=== PATIENT | male | born 1940 | race Caucasian/White ===

== ENCOUNTER 2019-01-01 09:22 | Inpatient (IN) ==
[2019-01-01] MEDS ORDERED: 0.9 % SODIUM CHLORIDE 1,000 ML IV ONE (09:26)
[2019-01-01] MEDS ORDERED: ONDANSETRON 4 MG/2 ML VIAL IV ONE ×2 (10:02→17:16)
--- NOTE | 2019-01-01 10:04 | Emergency Department Note ---
Abdominal Pain HPI - General Chief Complaint: Abdominal Pain Stated Complaint: Abd pain Time Seen by Provider: 01/01/19 09:53 Source: patient, family Mode of arrival: ambulatory Limitations: no limitations - History of Present Illness HPI Narrative: 78-year-old male patient presents to the emergency department with chief complaint abdominal pain. Patient told me he woke up around 05:30 this morning with severe, aggressive lower abdominal pain radiating down into his thighs and low back. He admits this feels a lot like when he had kidney stones in the past. He currently rates his pain 9/10. He denies any hematuria, dysuria, or frequency associated with this. His past history of some form of renal stone surgical procedure in the 1960s. He also denies A systemic fever, sweats, chills, shortness of breath, chest pain, palpitations, nausea, vomiting, diarrhea, or focal weakness. - Related Data Allergies Allergy/AdvReac Type Severity Reaction Status Date / Time Sulfa (Sulfonamide Allergy Mild Rash Verified 01/01/19 09:23 Antibiotics) Review of Systems All systems ED: reviewed and negative except as stated. Abdominal Pain PMH - Past Medical History Medical history: Reports: kidney stones Surgical history ED: Reports: other (renal stone removal) - Social History Smoking status: Never smoker Physical Exam Limitations: no limitations General appearance: alert, in distress (appears very incorrigible lying on the gurney.) Head: atraumatic, normocephalic Eye: Present: normal appearance, PERRL, EOMI. Absent: scleral icterus, conjunctival injection ENT: normal oropharynx, mucous membranes moist Neck: Present: trachea midline. Absent: lymphadenopathy, thyromegaly Respiratory: Present: normal lung sounds bilaterally. Absent: respiratory distress, wheezes, stridor, accessory muscle use, prolonged expiratory phase Cardiovascular: Present: regular rate, normal rhythm. Absent: systolic murmur, diastolic murmur Abdominal: Present: soft, tenderness (bilateral lower quadrant.), guarding (bilateral lower quadrants.), normal bowel sounds, scar (below the umbilicus midline.). Absent: distention, rebound, rigidity, organomegaly, mass Abdominal tenderness: Present: RLQ, LLQ, moderate. Absent: RUQ, LUQ, epigastrium Extremities: Absent: pedal edema, pretibial edema, calf tenderness Back: Present: CVA tenderness (R), CVA tenderness (L) Neurological: Present: alert, oriented X3 Psychiatric: Present: normal affect, normal mood Skin: Present: warm, dry Course Course Narrative: Patient was brought to the emergency department and a history of physical exam was performed. An IV was established and routine laboratory studies were drawn. Normal saline was started at thousand milliliter bolus. Patient was given Dilaudid 0.5 mg and Zofran 4 mg slow IV push. An abdominal CT scan has been ordered. Upon reevaluation patient admits his pain is essentially unchanged. Review of his laboratory studies showed subsegmental normal white blood cell count. H&H was within normal limits. CMP was essentially unremarkable with some mild hip per glycemia. GFR 90. Patient was given Toradol 30 mg IV push. Upon reevaluation he tells me that the pain is slightly decreased when he lays still. It does tend to sporadically increase taking his breath away. The CT scan results were reviewed by the radiologist to contacted us with a verbal read. At this time any stones were noted. The radiologist did mention the development of internal incarcerated hernias versus a bowel obstruction. With this in mind, I spoke to him my collaborative physician Mani is Dr. Espinal) mild patient's condition/disposition. He recommended we call the on-call surgeon about the patient's case. I spoke with Dr. Mohan. She is general surgeon) is about the patient and mentioned the CT scan results. The patient has remained hemodynamically stable throughout his entire time in the emergency department. He has received several IV doses of Dilaudid with only moderate control of his pain. At this time the patient is going to be admitted to the hospital and be evaluated further by Dr. Mohan upon his arrival at the facility. Vital Signs Temperature 97.0 F 01/01/19 09:24 Pulse Rate 58 L 01/01/19 09:24 Respiratory Rate 18 01/01/19 09:24 Blood Pressure 154/71 01/01/19 09:24 Pulse Oximetry (%) 97 01/01/19 09:24 Temperature 97.0 F 01/01/19 09:24 Pulse Rate 62 01/01/19 10:21 Respiratory Rate 18 01/01/19 09:24 Blood Pressure 150/73 01/01/19 10:21 Pulse Oximetry (%) 95 01/01/19 10:21 Abdominal Pain - Lab Data Lab results reviewed: Yes I reviewed the patient's lab results. Result diagrams: 01/01/19 09:39 01/01/19 09:39 Lab Results 01/01/19 01/01/19 Range/Units 09:39 09:39 WBC 11.1 H (4.5-11.0) K/mcL RBC 4.50 (4.50-5.90) M/mcL Hgb 14.6 (13.5-16.5) g/dL Hct 44.2 (41.0-55.0) % MCV 98.2 (80.0-100.0) fL MCH 32.3 (26.0-34.0) pg MCHC 32.9 (31.0-36.0) g/dL RDW 14.0 (11.5-14.5) % Plt Count 270 (140-440) K/mcL MPV 7.7 (7.4-10.4) fL Gran % 81.1 H (38.0-78.0) % Lymph % (Auto) 14.7 L (15.5-49.0) % [place] % (Auto) 3.6 (1.0-12.0) % Eos % (Auto) 0.2 (0.0-7.0) % Baso % (Auto) 0.4 (0.0-2.0) % Gran # 9.0 H (1.8-8.0) K/mcL Lymph # (Auto) 1.6 (1.5-4.8) K/mcL [place] # (Auto) 0.4 (0.1-0.9) K/mcL Eos # (Auto) 0 (0.0-0.7) K/mcL Baso # (Auto) 0 (0.0-0.3) K/mcL Sodium 138 (133-145) mmol/L Potassium 4.3 (3.3-5.1) mmol/L Chloride 101 (96-108) mmol/L Carbon Dioxide 24 (22-30) mmol/L Anion Gap 13.0 (8-16) BUN 14 (8-23) mg/dl Creatinine 0.7 (0.7-1.2) mg/dl GFR Calculation 90 Glucose 143 H (70-105) mg/dL Calcium 9.2 (8.6-10.4) mg/dl Total Bilirubin 0.5 (0.0-1.0) mg/dL AST 16 (0-37) U/l ALT 8 (0-40) U/l Alkaline Phosphatase 63 (39-117) U/L Total Protein 7.6 (5.9-8.4) gm/dL Albumin 4.5 (3.2-5.2) gm/dL Globulin 3.1 (2.2-3.7) gm/dL Albumin/Globulin Ratio 1.5 (1.0-2.3) - Radiology Data Radiology results reviewed: Yes I reviewed the patient's radiology results. Disposition Pt seen by HOOF TRIMMER/PA only: No ([facility]) Clinical Impression: Abdominal pain Qualifiers: Abdominal location: lower abdomen, unspecified Qualified Code(s): R10.30 - Lower abdominal pain, unspecified Disposition: Xfer As Outpt/Obs ([facility]) Condition: Good Instructions: Abdominal Pain (ED) Additional Instructions: Patient is going be admitted to the hospital under observation. He'll be evaluated by the general surgeon (Dr. Mohan) later today. Time of Disposition: 11:56
[2019-01-01] MEDS: HYDROmorphone 2 MG/ML VIAL IV PRN ×7 (10:08→23:54)
[2019-01-01 10:18] LABS: Basophils # (Auto) 0 K/mcL (0.0-0.3); Basophils % (Auto) 0.4 % (0.0-2.0); Eosinophils # (Auto) 0 K/mcL (0.0-0.7); Eosinophils % (Auto) 0.2 % (0.0-7.0); Granulocytes % (Auto) 81.1 % (38.0-78.0); Hematocrit 44.2 % (41.0-55.0); Hemoglobin 14.6 g/dL (13.5-16.5); Lymphocytes # (Auto) 1.6 K/mcL (1.5-4.8); Lymphocytes % (Auto) 14.7 % (15.5-49.0); Mean Cell Volume 98.2 fL (80.0-100.0); Mean Corpuscular HGB Conc 32.9 g/dL (31.0-36.0); Mean Platelet Volume 7.7 fL (7.4-10.4); Monocytes # (Auto) 0.4 K/mcL (0.1-0.9); Monocytes % (Auto) 3.6 % (1.0-12.0); Platelet Count 270 K/mcL (140-440); WBC 11.1 K/mcL (4.5-11.0)
[2019-01-01 10:26] LABS: ALT/SGPT 8 U/l (0-40); AST/SGOT 16 U/l (0-37); Albumin 4.5 gm/dL (3.2-5.2); Albumin/Globulin Ratio 1.5 (1.0-2.3); Alkaline Phosphatase 63 U/L (39-117); Bilirubin,Total 0.5 mg/dL (0.0-1.0); Blood Urea Nitrogen 14 mg/dl (8-23); Calcium 9.2 mg/dl (8.6-10.4); Carbon Dioxide 24 mmol/L (22-30); Chloride 101 mmol/L (96-108); Globulin 3.1 gm/dL (2.2-3.7); Glomerular Filtration Rate 90; Glucose 143 mg/dL (70-105); Potassium 4.3 mmol/L (3.3-5.1); Sodium 138 mmol/L (133-145)
[2019-01-01] MEDS ORDERED: KETOROLAC 30 MG/ML VIAL IV ONE (10:47)
[2019-01-01] MEDS ORDERED: ONDANSETRON 4 MG/2 ML VIAL IV PRN ×2 (11:30→17:58)
[2019-01-01] MEDS ORDERED: HYDROmorphone 2 MG/ML VIAL IV PRN (11:52)
--- NOTE | 2019-01-01 14:25 | Cat Scan Report ---
CLINICAL INFORMATION: New onset lower abdominal pain COMPARISON: None. TECHNIQUE: The abdomen was imaged without oral or IV contrast, scanning from the diaphragm to the symphysis pubis. Sagittal and coronal reformats were created. Radiation exposure was limited using dose reduction technology. FINDINGS: Lung bases are clear. The heart size is normal. There is a moderate amount calcified plaque in the left anterior descending coronary artery. Liver is normal in size. There is mild generalized fatty infiltration. The spleen is normal in size and homogeneous. There are no gallstones or dilatation of the bile ducts. There is no apparent mass or inflammation the pancreas. The adrenals are normal. No kidney stone or hydronephrosis are present. In the cortex anteriorly in the lower half of the right kidney there is a round 5 mm high attenuation structure. This probably a cyst with proteinaceous debris. The ureters are decompressed. The aorta is normal in caliber. There are few scattered plaques along the wall of the aorta and iliac arteries. Patient has a fat-containing umbilical hernia. There is there are several loops of jejunum in the left mid abdomen which are mildly dilated. There stranding of the mesenteric fat adjacent to the bowel. Transition points are seen. There is no apparent mass. The bowel measures up to 2.8 cm in size and contains mostly fluid. Proximal and distal to this the small intestine is normal in caliber. The colon appears normal without evidence of diverticulitis or obstruction or inflammatory bowel disease. The appendix is noninflamed. Small amount of ascites is present deep in the pelvis. There is no evidence of an abscess or adenopathy. No free intra-abdominal air is present. There is degenerative disc disease and arthritis throughout the lumbar spine and lower thoracic spine. IMPRESSION: Abnormal segments of dilated jejunum in the left mid abdomen. This could be due to an internal hernia or adhesions resulting in low-grade small bowel obstruction. No evidence of kidney stone or urinary tract obstruction Fatty infiltration of liver Dr. Espinal was called with the results Interpreted and Authenticated by: Alvino Rosales 01/01/19
--- NOTE | 2019-01-01 14:41 | General Surg History&Physical ---
History of Present Illness Patient information: Note initiated : 01/01/19 at 2:39 pm Service Date, if different from initiated Date: [] Patient: Alannah Valdez a 78 y/o M admitted on 01/01/19 for Abd pain. Chief Complaint: [] HPI: Mr. Valdez is a 78 year old M who was admitted with crampy abdominal pain and e vidence of internal hernia with bowel obstruction. The patient states that he was awakened about 5:30 this morning with crampy abdominal pain. The pain increased in severity and he had nausea but no vomiting. He was seen in the emergency room for evaluation. His last flatus was 1-1/2 days ago as was his last bowel movement. He has not had similar pain in the past. CT of the abdomen reveals an area of twisted bowel with twisting of the mesentery in the left lateral abdomen, compatible with suspected internal hernia with obstruction. He has gas distally in the colon and the bowel distal to the area of obstruction is decompressed. Patient has a history of laparotomy for kidney stones in the remote past. Review of Systems - Musculoskeletal back pain, myalgias Past History Past medical history: Hypothyroidism. History of kidney stones Past surgical history: Exploratory laparotomy for kidney stones. Bilateral rotator cuff repair Past family history: Mother age 80 due to complications of dementia. Father age 84 due to complications of colon cancer Past social history: No smokers or tobacco use. Occasional alcohol use. No history of drug use. Retired Medications and Allergies Home Medications Medication Instructions Recorded Confirmed Type Cyanocobalamin (Vitamin B-12) 2,500 mcg PO DAILY 01/01/19 01/01/19 History [Vitamin B12] Levothyroxine Sodium [Synthroid] 112 mcg PO DAILY 01/01/19 01/01/19 History Vit A,C & E/Lutein/Minerals 1 tab PO DAILY 01/01/19 01/01/19 History [Ocuvite] Allergies Allergy/AdvReac Type Severity Reaction Status Date / Time Sulfa (Sulfonamide Allergy Mild Rash Verified 01/01/19 09:23 Antibiotics) Exam Temp Pulse Resp BP Pulse Ox 98.2 F 74 16 159/81 97 01/01/19 12:08 01/01/19 12:08 01/01/19 12:08 01/01/19 12:08 06/01/19 12:08 - General physical appearance well developed, well nourished, no distress - Eyes PERRL, normal ocular movement - ENT normal pinna, normal nares, normal mucosa, no congestion, decreased hearing, poor alf - Head Head exam IM: Present: atraumatic, normocephalic - Neck no masses, no bruits, trachea midline, no lymphadenopathy, no venous distension - Cardiovascular Cardiovascular exam IM: Present: normal rate and rhythm - Respiratory normal expansion, normal respiratory effort, clear to percussion, clear to auscultation - Abdomen Abdomen: Present: soft, tender (tender abdomen especially in the left lateral abdomen and flank with guarding and rebound), bowel sounds (hyperactive bowel sounds) Hernia: Present: none - Genitourinary Present: normal penis with no external lesions - Integumentary Present: no rash, no growths, no abnormal pigmentation - Neurologic Present: normal coordination, normal sensation - Musculoskeletal Present: normal gait, normal posture - Psychiatric Present: oriented to time, oriented to person, oriented to place, speech is normal, memory intact Assessment and Plan (1) Small bowel obstruction due to adhesions IV hydration. Zosyn 3.375 g IV every 6 hours IV analgesics and antiemetics. Scheduled for exploratory laparotomy later today Status: Acute (2) Hypothyroidism (acquired) Status: Acute (3) History of kidney stones Status: Acute
[2019-01-01] MEDS: PIPERACILLIN SODIUM/TAZOBACTAM 3.375 GM in DEXTROSE 5% IN WATER 50 ML IV SCH ×3 (14:51→21:28)
--- NOTE | 2019-01-01 14:56 | XRay Report ---
HISTORY: Preop for bowel obstruction FINDINGS: The lungs are clear and well expanded. There is no pleural effusion, pulmonary vascular congestion or free intra-abdominal air. The heart size mediastinum and della are normal. There are two metal anchors in the right humeral head. IMPRESSION: Normal chest Interpreted and Authenticated by: Alvino Rosales 01/01/19
--- NOTE | 2019-01-01 16:17 | Emergency Department Note ---
ED Note Addendum Note Addendum: I reviewed this case of Hubert Roberson PA-C. I agree with his evaluation management documentation. In particular I discussed CT scan read out with Dr. Alvino Rosales the radiologist and then we discussed management of this case and the decision to admit with Mr. Roberson
[2019-01-01] MEDS ORDERED: PANTOPRAZOLE 40 MG VIAL IV SCH (17:00)
[2019-01-01] MEDS ORDERED: fentaNYL 250 MCG/5 ML VIAL IV ONE (17:16)
[2019-01-01] MEDS ORDERED: SUGAMMADEX SODIUM 200 MG/2 ML VIAL IV ONE (17:16)
[2019-01-01] MEDS ORDERED: MIDAZOLAM 5 MG/5 ML VIAL IV ONE (17:16)
[2019-01-01] MEDS ORDERED: DEXAMETHASONE 10 MG/ML VIAL IV ONE (17:16)
[2019-01-01] MEDS ORDERED: ROCURONIUM 10 MG/ML ML IV ONE (17:16)
[2019-01-01] MEDS ORDERED: PROPOFOL 200 MG/20 ML VIAL IV ONE (17:16)
[2019-01-01] MEDS ORDERED: LIDOCAINE HCL/PF 100 MG/5 ML SYRINGE IV ONE (17:16)
[2019-01-01 17:33] LABS: Appearance,Urine HAZY; Bacteria,Urine 0 /hpf (0); Bilirubin,Urine NEG (NEG); Color,Urine YELLOW; Culture Indicated,Urine NO; Glucose,Urine (UA) NEGATIVE (NEG); Ketones,Urine 20 mg/dL (NEG); Leukocyte Esterase,Urine 25 /uL (NEG); Mucus,Urine FEW /hpf (0); Nitrate,Urine NEG (NEG); Protein,Urine NEG (NEG); Specific Gravity,Urine 1.028 (1.000-1.035); Urine Amorphous Crystals FEW /hpf (0); Urine Blood NEG mg/dL (<0.03); Urine RBC < 1 /hpf (0-1); Urine Squamous Epithelial Cell < 1 /hpf (0-4); Urine WBC 8 /hpf (0-4); Urobilinogen,Urine NEG (NEG)
[2019-01-01] MEDS ORDERED: BENZOCAINE/MENTHOL 1 LOZENGE PO PRN (17:58)
[2019-01-01] MEDS ORDERED: LACTATED RINGERS 250 ML IV PRN (17:58)
[2019-01-01] MEDS ORDERED: diphenhydrAMINE 50 MG/ML VIAL IV PRN (17:58)
[2019-01-01] MEDS ORDERED: ACETAMINOPHEN 1,000 MG/100 ML BOTTLE IV ONE (17:58)
[2019-01-01] MEDS ORDERED: NALOXONE HCL 0.4 MG/ML VIAL IV PRN (17:58)
[2019-01-01] MEDS ORDERED: fentaNYL 100 MCG/2 ML VIAL IV PRN (17:58)
[2019-01-01] MEDS ORDERED: IPRATROPIUM/ALBUTEROL 3 ML AMPUL.NEB NEB PRN (17:58)
[2019-01-01] MEDS ORDERED: PROMETHAZINE 25 MG/ML VIAL IV PRN (17:58)
[2019-01-01] MEDS ORDERED: MEPERIDINE 25 MG/ML SYRINGE IV PRN (17:58)
[2019-01-01] MEDS ORDERED: LACTATED RINGERS 1,000 ML IV SCH (18:00)
[2019-01-01] MEDS ORDERED: MEPERIDINE 50 MG/ML INJECTION ONE (18:23)
--- NOTE | 2019-01-01 18:25 | Brief Operative Note ---
Date of procedure: 01/01/19 Pre-op diagnosis: small bowel obstruction Post-op diagnosis: other (small bowel obstruction with ischemic jejunum) Procedure: exploratory laparotomy with adhesiolysis Grafts/Implants: No Anesthesia: GETA Findings: tight adhesion around 20cm loop of jejunum with severe dark ischemic hemorrhagic changes in mesentery and bowel loops; the bowel regained perfusion with excellent peristalsis after 15 minutes; large volume of turbid fluid in pelvis Complications: none Surgeon: Josefa Mohan Estimated blood loss (cc): 10 Specimens Removed/Pathology: none sent Condition: stable Disposition: PACU
[2019-01-01] MEDS: FLUMAZENIL 0.1 MG/ML ML IV PRN ×2 (18:51→18:57)
[2019-01-01] MEDS ORDERED: FLUMAZENIL 0.1 MG/ML ML IV ONE (18:54)
[2019-01-01] MEDS ORDERED: ACETAMINOPHEN 1,000 MG in PREMIX 1 BAG IV SCH (19:19)
[2019-01-01] MEDS: 0.9 % SODIUM CHLORIDE 1,000 ML IV SCH ×2 (19:27→21:30)
[2019-01-01] MEDS: ONDANSETRON 4 MG/2 ML VIAL IV PRN (21:49)
[2019-01-01] MEDS: METOCLOPRAMIDE 10 MG/2 ML VIAL IV SCH (23:48)
[2019-01-02] MEDS: PIPERACILLIN SODIUM/TAZOBACTAM 3.375 GM in DEXTROSE 5% IN WATER 50 ML IV SCH ×5 (00:55→23:51)
[2019-01-02] MEDS: ACETAMINOPHEN 1,000 MG/100 ML BOTTLE IV SCH ×3 (01:24→12:39)
[2019-01-02] MEDS: 0.9 % SODIUM CHLORIDE 1,000 ML IV SCH ×3 (03:02→19:13)
[2019-01-02] MEDS: ONDANSETRON 4 MG/2 ML VIAL IV PRN ×2 (04:22→19:33)
[2019-01-02] MEDS: HYDROmorphone 2 MG/ML VIAL IV PRN ×2 (04:22→19:33)
[2019-01-02 05:40] LABS: Basophils # (Auto) 0 K/mcL (0.0-0.3); Basophils % (Auto) 0.1 % (0.0-2.0); Eosinophils # (Auto) 0 K/mcL (0.0-0.7); Eosinophils % (Auto) 0 % (0.0-7.0); Granulocytes % (Auto) 89.8 % (38.0-78.0); Hematocrit 38.3 % (41.0-55.0); Hemoglobin 12.8 g/dL (13.5-16.5); Lymphocytes # (Auto) 0.9 K/mcL (1.5-4.8); Mean Cell Volume 97.9 fL (80.0-100.0); Mean Corpuscular HGB Conc 33.5 g/dL (31.0-36.0); Mean Platelet Volume 7.6 fL (7.4-10.4); Monocytes # (Auto) 0.1 K/mcL (0.1-0.9); Monocytes % (Auto) 1.1 % (1.0-12.0); Platelet Count 222 K/mcL (140-440); RBC 3.91 M/mcL (4.50-5.90); Red Cell Distribution Width 13.8 % (11.5-14.5); WBC 9.7 K/mcL (4.5-11.0)
[2019-01-02] MEDS: METOCLOPRAMIDE 10 MG/2 ML VIAL IV SCH ×4 (05:43→23:51)
[2019-01-02 05:46] LABS: ALT/SGPT 6 U/l (0-40); AST/SGOT 14 U/l (0-37); Albumin 3.4 gm/dL (3.2-5.2); Albumin/Globulin Ratio 1.4 (1.0-2.3); Alkaline Phosphatase 47 U/L (39-117); Bilirubin,Direct < 0.2 mg/dL (0.0-0.3); Bilirubin,Total 0.6 mg/dL (0.0-1.0); Blood Urea Nitrogen 14 mg/dl (8-23); Calcium 8.1 mg/dl (8.6-10.4); Carbon Dioxide 21 mmol/L (22-30); Chloride 106 mmol/L (96-108); Gamma Glutamyl Transpeptidase 32 U/L (8-61); Globulin 2.5 gm/dL (2.2-3.7); Glomerular Filtration Rate 90; Glucose 136 mg/dL (70-105); Lactate Dehydrogenase 135 U/L (94-250); Magnesium 1.8 mg/dL (1.6-2.5); Phosphorous 2.6 mg/dL (2.7-4.5); Potassium 4.4 mmol/L (3.3-5.1); Sodium 139 mmol/L (133-145); Triglycerides 40 mg/dl (<150); Uric Acid 3.5 mg/dL (2.5-8.0)
[2019-01-02] MEDS ORDERED: PANTOPRAZOLE 40 MG VIAL IV SCH (07:30)
[2019-01-02] MEDS: PANTOPRAZOLE 40 MG VIAL IV SCH ×2 (07:58→17:25)
--- NOTE | 2019-01-02 13:34 | General Surgery Progress Note ---
Subjective Patient reports: feels better, pain is less, no flatus, no bowel movement Narrative: Note initiated : 01/02/19 at 1:32 pm Service Date, if different from initiated Date: [] Patient: Alannah Valdez 78 y/o M admitted on 01/01/19 for Abd pain. Chief Complaint: [patient is doing well. He he had an uneventful evening. His incisional pain is controlled. He denies nausea. He has not had flatus or b owel movement. White blood count 9.7, hemoglobin 12.8, hematocrit 38.3, lactic acid 2, phosphorus 2.6.] Objective Temp Pulse Resp BP Pulse Ox 97.9 F 87 20 133/75 96 01/02/19 11:41 01/02/19 04:00 01/02/19 11:41 01/02/19 11:41 01/02/19 11:41 - Additional Data Intake & Output - Last 24 hours: Intake & Output 12/31/18 01/01/19 01/02/19 01/03/19 05:59 05:59 05:59 05:59 Intake Total 4150 1150 Output Total 1200 Balance 2950 1150 Weight 152 lb - General physical appearance well developed, well nourished, no distress - Eyes PERRL, normal ocular movement - ENT normal pinna, normal nares, normal mucosa, no hearing loss, no congestion - Neck no masses, no bruits, trachea midline, no lymphadenopathy, no venous distension - Respiratory normal expansion, normal respiratory effort, clear to auscultation - Cardiovascular Cardiovascular exam: Present: normal rate and rhythm, RRR, +S1, +S2. Absent: JVD, tachycardia - Abdomen tender (mild incisional tenderness; mild central distention; hypoactive bowel sounds; moderate amount of bloody drainage from incision with early ecchymosis) - Integumentary no rash, no growths, no abnormal pigmentation - Neurologic normal coordination, normal sensation - Musculoskeletal normal gait, normal posture - Psychiatric oriented to time, oriented to person, oriented to place, speech is normal, memory intact - Labs 01/02/19 04:10 01/02/19 04:10 Diabetes panel 01/02/19 Range/Units 04:10 Sodium 139 (133-145) mmol/L Potassium 4.4 (3.3-5.1) mmol/L Chloride 106 (96-108) mmol/L Carbon Dioxide 21 L (22-30) mmol/L BUN 14 (8-23) mg/dl Creatinine 0.7 (0.7-1.2) mg/dl Glucose 136 H (70-105) mg/dL Calcium 8.1 L (8.6-10.4) mg/dl AST 14 (0-37) U/l ALT 6 (0-40) U/l Alkaline Phosphatase 47 (39-117) U/L Total Protein 5.9 (5.9-8.4) gm/dL Albumin 3.4 (3.2-5.2) gm/dL Triglycerides 40 (<150) mg/dl Calcium panel 01/02/19 Range/Units 04:10 Calcium 8.1 L (8.6-10.4) mg/dl Phosphorus 2.6 L (2.7-4.5) mg/dL Albumin 3.4 (3.2-5.2) gm/dL Pituitary panel 01/02/19 Range/Units 04:10 Sodium 139 (133-145) mmol/L Potassium 4.4 (3.3-5.1) mmol/L Chloride 106 (96-108) mmol/L Carbon Dioxide 21 L (22-30) mmol/L BUN 14 (8-23) mg/dl Creatinine 0.7 (0.7-1.2) mg/dl Glucose 136 H (70-105) mg/dL Calcium 8.1 L (8.6-10.4) mg/dl Adrenal panel 01/02/19 Range/Units 04:10 Sodium 139 (133-145) mmol/L Potassium 4.4 (3.3-5.1) mmol/L Chloride 106 (96-108) mmol/L Carbon Dioxide 21 L (22-30) mmol/L BUN 14 (8-23) mg/dl Creatinine 0.7 (0.7-1.2) mg/dl Glucose 136 H (70-105) mg/dL Calcium 8.1 L (8.6-10.4) mg/dl Total Bilirubin 0.6 (0.0-1.0) mg/dL AST 14 (0-37) U/l ALT 6 (0-40) U/l Alkaline Phosphatase 47 (39-117) U/L Total Protein 5.9 (5.9-8.4) gm/dL Albumin 3.4 (3.2-5.2) gm/dL Assessment and Plan (1) Small bowel obstruction due to adhesions Status: Resolved Assessment and plan: Continue nasogastric suction. Check abdominal x-rays in the morning Current Visit: Yes (2) Hypothyroidism (acquired) Status: Acute Current Visit: Yes (3) History of kidney stones Status: Acute Current Visit: Yes - Time Spent With Patient Total time spent is greater than 50% in coordination of care (as documented) at patient's floor/unit and/or counseling patient:
[2019-01-03] MEDS: 0.9 % SODIUM CHLORIDE 1,000 ML IV SCH ×5 (00:50→18:45)
[2019-01-03 05:01] LABS: Basophils # (Auto) 0 K/mcL (0.0-0.3); Basophils % (Auto) 0.2 % (0.0-2.0); Eosinophils # (Auto) 0 K/mcL (0.0-0.7); Eosinophils % (Auto) 0 % (0.0-7.0); Granulocytes % (Auto) 77.8 % (38.0-78.0); Hematocrit 35.9 % (41.0-55.0); Lymphocytes # (Auto) 1.9 K/mcL (1.5-4.8); Lymphocytes % (Auto) 15.2 % (15.5-49.0); Mean Cell Volume 98.4 fL (80.0-100.0); Mean Corpuscular HGB Conc 33.4 g/dL (31.0-36.0); Mean Platelet Volume 7.3 fL (7.4-10.4); Monocytes # (Auto) 0.9 K/mcL (0.1-0.9); Monocytes % (Auto) 6.8 % (1.0-12.0); Platelet Count 185 K/mcL (140-440); RBC 3.65 M/mcL (4.50-5.90); Red Cell Distribution Width 13.5 % (11.5-14.5); WBC 12.6 K/mcL (4.5-11.0)
[2019-01-03] MEDS: PIPERACILLIN SODIUM/TAZOBACTAM 3.375 GM in DEXTROSE 5% IN WATER 50 ML IV SCH ×4 (05:03→23:57)
[2019-01-03] MEDS: METOCLOPRAMIDE 10 MG/2 ML VIAL IV SCH ×4 (05:03→23:56)
[2019-01-03 05:40] LABS: ALT/SGPT 8 U/l (0-40); AST/SGOT 17 U/l (0-37); Albumin 3.4 gm/dL (3.2-5.2); Albumin/Globulin Ratio 1.3 (1.0-2.3); Alkaline Phosphatase 40 U/L (39-117); Bilirubin,Direct < 0.2 mg/dL (0.0-0.3); Bilirubin,Total 0.8 mg/dL (0.0-1.0); Blood Urea Nitrogen 16 mg/dl (8-23); Calcium 8.2 mg/dl (8.6-10.4); Carbon Dioxide 23 mmol/L (22-30); Chloride 108 mmol/L (96-108); Gamma Glutamyl Transpeptidase 28 U/L (8-61); Globulin 2.6 gm/dL (2.2-3.7); Glomerular Filtration Rate 86; Glucose 91 mg/dL (70-105); Lactate Dehydrogenase 156 U/L (94-250); Magnesium 2.1 mg/dL (1.6-2.5); Phosphorous 1.8 mg/dL (2.7-4.5); Potassium 4.1 mmol/L (3.3-5.1); Sodium 140 mmol/L (133-145); Triglycerides 114 mg/dl (<150); Uric Acid 2.4 mg/dL (2.5-8.0)
[2019-01-03] MEDS: PANTOPRAZOLE 40 MG VIAL IV SCH ×2 (06:51→17:30)
--- NOTE | 2019-01-03 08:02 | XRay Report ---
CLINICAL INFORMATION: follow-up of postoperative ileus COMPARISON: Preoperative abdomen and pelvic CT 01/01/2019 FINDINGS: Stool gas pattern is nonspecific: there are few loops of moderately dilated small bowel in the right mid abdomen which contain air-fluid levels. The remainder of the small and large bowel appear grossly normal. Small amount of free air under the right diaphragm is seen as expected in the postoperative period IMPRESSION: Probable atypical ileus. Consider: Water-soluble small bowel follow-through to ensure the absence of small bowel obstruction Interpreted and Authenticated by: Calvin Branch 01/03/19
--- NOTE | 2019-01-03 08:12 | Operative Note ---
DATE OF OPERATION: 01/01/2019 PREOPERATIVE DIAGNOSIS: Small bowel obstruction. POSTOPERATIVE DIAGNOSIS: Small bowel obstruction due to adhesions with ischemic jejunum. PROCEDURE: Exploratory laparotomy with adhesiolysis. SURGEON: Josefa Mohan M.D. FINDINGS: Tight adhesive band around about 20 cm of jejunum with severe dark ischemic hemorrhagic changes in the mesentery and bowel loops. The bowel regained perfusion with excellent peristalsis after 15 minutes of observation. There was a large volume of turbid fluid in the pelvis. DESCRIPTION OF PROCEDURE: Under general anesthesia, the patient's abdomen was prepped and draped in a sterile field. A midline incision was made. Upon entering the abdomen, there was some turbid fluid. Inspection revealed a loop of thickened bowel in the left lateral abdomen. These were pulled into the operating field. There was a band around the mesentery that was actually lysed with finger fractionation. This released the band, which was around the bowel lumen and the mesentery. There was severe venous congestion with dark ischemic hemorrhagic changes in the mesentery and the wall of the bowel. The bowel was allowed to perfuse for about 12 to 15 minutes. The bowel regained its peristaltic activity. The ischemic looking changes in the mesentery began to correct except for some edema. The pelvis was inspected and a large volume of turbid fluid was suctioned. The peritoneal cavity was irrigated. Nasogastric tube was positioned in the stomach. The rest of the bowel was uninvolved. The bowel was returned into the peritoneal cavity. The sponge, needle, instrument and blade counts were correct. The fascia was closed with running #1 Prolene. Subcutaneous fat was closed with running 2-0 Monocryl. Skin was closed with roger. The patient tolerated the procedure well. He was awakened and transferred to a bed and taken to the postanesthetic care unit in a stable, satisfactory condition. LCS:mónica Job ID: [id number] Doc ID: [id number] Josefa Mohan M.D.
--- NOTE | 2019-01-03 13:11 | General Surgery Progress Note ---
Subjective Patient reports: feels better, pain is less, flatus, no bowel movement, afebrile Narrative: Note initiated : 01/03/19 at 1:08 pm Service Date, if different from initiated Date: [] Patient: Alannah Valdez 78 y/o M admitted on 01/01/19 for Abd pain. Chief Complaint: [patient states that he feels better. He had multiple episodes of flatus. He denies nausea. His pain is well controlled. White blood count 12.6, hemoglobin 12, phosphorus 1.8, potassium 4.1.] Objective Temp Pulse Resp BP Pulse Ox 99.8 F H 70 18 142/73 94 01/03/19 11:55 01/03/19 11:55 01/03/19 11:55 01/03/19 11:55 01/03/19 11:55 - Additional Data Intake & Output - Last 24 hours: Intake & Output 01/01/19 01/02/19 01/03/19 01/04/19 05:59 05:59 05:59 05:59 Intake Total 4150 3720 1050 Output Total 1200 3725 1050 Balance 2950 -5 0 Weight 152 lb 156 lb - General physical appearance well developed, well nourished, no distress, moderate pain - Eyes PERRL, normal ocular movement - ENT normal pinna, normal nares, normal mucosa, no hearing loss, no congestion - Neck no masses, no bruits, trachea midline, no lymphadenopathy, no venous distension - Respiratory normal expansion, normal respiratory effort, clear to auscultation - Cardiovascular Cardiovascular exam: Present: normal rate and rhythm, RRR, +S1, +S2. Absent: JVD, tachycardia - Abdomen tender (tender midline incision; mild distention; good active bowel sounds), bowel sounds (present), surgical scars (none), masses (none) - Integumentary no rash, no growths, no abnormal pigmentation - Neurologic normal coordination, normal sensation - Musculoskeletal normal gait, normal posture - Psychiatric oriented to time, oriented to person, oriented to place, speech is normal, memory intact - Labs 01/03/19 04:00 01/03/19 04:00 Diabetes panel 01/03/19 Range/Units 04:00 Sodium 140 (133-145) mmol/L Potassium 4.1 (3.3-5.1) mmol/L Chloride 108 (96-108) mmol/L Carbon Dioxide 23 (22-30) mmol/L BUN 16 (8-23) mg/dl Creatinine 0.8 (0.7-1.2) mg/dl Glucose 91 (70-105) mg/dL Calcium 8.2 L (8.6-10.4) mg/dl AST 17 (0-37) U/l ALT 8 (0-40) U/l Alkaline Phosphatase 40 (39-117) U/L Total Protein 6.0 (5.9-8.4) gm/dL Albumin 3.4 (3.2-5.2) gm/dL Triglycerides 114 (<150) mg/dl Calcium panel 01/03/19 Range/Units 04:00 Calcium 8.2 L (8.6-10.4) mg/dl Phosphorus 1.8 L (2.7-4.5) mg/dL Albumin 3.4 (3.2-5.2) gm/dL Pituitary panel 01/03/19 Range/Units 04:00 Sodium 140 (133-145) mmol/L Potassium 4.1 (3.3-5.1) mmol/L Chloride 108 (96-108) mmol/L Carbon Dioxide 23 (22-30) mmol/L BUN 16 (8-23) mg/dl Creatinine 0.8 (0.7-1.2) mg/dl Glucose 91 (70-105) mg/dL Calcium 8.2 L (8.6-10.4) mg/dl Adrenal panel 01/03/19 Range/Units 04:00 Sodium 140 (133-145) mmol/L Potassium 4.1 (3.3-5.1) mmol/L Chloride 108 (96-108) mmol/L Carbon Dioxide 23 (22-30) mmol/L BUN 16 (8-23) mg/dl Creatinine 0.8 (0.7-1.2) mg/dl Glucose 91 (70-105) mg/dL Calcium 8.2 L (8.6-10.4) mg/dl Total Bilirubin 0.8 (0.0-1.0) mg/dL AST 17 (0-37) U/l ALT 8 (0-40) U/l Alkaline Phosphatase 40 (39-117) U/L Total Protein 6.0 (5.9-8.4) gm/dL Albumin 3.4 (3.2-5.2) gm/dL Assessment and Plan (1) Small bowel obstruction due to adhesions Status: Resolved Assessment and plan: Check abdominal x-rays in the morning Clear liquid diet. Replace phosphorus Current Visit: Yes (2) Hypothyroidism (acquired) Status: Acute Current Visit: Yes (3) History of kidney stones Status: Acute Current Visit: Yes - Time Spent With Patient Total time spent is greater than 50% in coordination of care (as documented) at patient's floor/unit and/or counseling patient:
[2019-01-03] MEDS: NEUTRA PHOS 1 PACKET PO SCH (20:49)
[2019-01-04] MEDS: 0.9 % SODIUM CHLORIDE 1,000 ML IV SCH ×2 (02:59→14:39)
[2019-01-04 05:28] LABS: Basophils # (Auto) 0 K/mcL (0.0-0.3); Basophils % (Auto) 0.3 % (0.0-2.0); Eosinophils # (Auto) 0.1 K/mcL (0.0-0.7); Eosinophils % (Auto) 0.8 % (0.0-7.0); Granulocytes % (Auto) 72.5 % (38.0-78.0); Hematocrit 35.4 % (41.0-55.0); Lymphocytes # (Auto) 1.5 K/mcL (1.5-4.8); Lymphocytes % (Auto) 18.2 % (15.5-49.0); Mean Cell Volume 96.7 fL (80.0-100.0); Mean Corpuscular HGB Conc 33.9 g/dL (31.0-36.0); Mean Platelet Volume 7.5 fL (7.4-10.4); Monocytes # (Auto) 0.7 K/mcL (0.1-0.9); Monocytes % (Auto) 8.2 % (1.0-12.0); Platelet Count 184 K/mcL (140-440); RBC 3.66 M/mcL (4.50-5.90); Red Cell Distribution Width 13.7 % (11.5-14.5)
[2019-01-04 05:52] LABS: ALT/SGPT 8 U/l (0-40); AST/SGOT 15 U/l (0-37); Albumin 3.3 gm/dL (3.2-5.2); Albumin/Globulin Ratio 1.3 (1.0-2.3); Alkaline Phosphatase 39 U/L (39-117); Bilirubin,Direct < 0.2 mg/dL (0.0-0.3); Bilirubin,Total 0.8 mg/dL (0.0-1.0); Blood Urea Nitrogen 9 mg/dl (8-23); Calcium 7.9 mg/dl (8.6-10.4); Carbon Dioxide 23 mmol/L (22-30); Chloride 108 mmol/L (96-108); Gamma Glutamyl Transpeptidase 31 U/L (8-61); Globulin 2.6 gm/dL (2.2-3.7); Glomerular Filtration Rate 90; Glucose 86 mg/dL (70-105); Lactate Dehydrogenase 158 U/L (94-250); Magnesium 2.1 mg/dL (1.6-2.5); Phosphorous 2.3 mg/dL (2.7-4.5); Potassium 3.9 mmol/L (3.3-5.1); Sodium 141 mmol/L (133-145); Triglycerides 111 mg/dl (<150); Uric Acid 2.3 mg/dL (2.5-8.0)
[2019-01-04] MEDS: METOCLOPRAMIDE 10 MG/2 ML VIAL IV SCH ×4 (05:52→23:53)
[2019-01-04] MEDS: PIPERACILLIN SODIUM/TAZOBACTAM 3.375 GM in DEXTROSE 5% IN WATER 50 ML IV SCH ×4 (05:53→23:55)
[2019-01-04] MEDS: PANTOPRAZOLE 40 MG VIAL IV SCH ×2 (06:46→17:42)
[2019-01-04] MEDS: NEUTRA PHOS 1 PACKET PO SCH ×2 (09:08→20:22)
--- NOTE | 2019-01-04 10:04 | XRay Report ---
CLINICAL INFORMATION: postoperative ileus COMPARISON: 01/03/2019 FINDINGS: There is small amount of gas scattered throughout the abdomen compatible with relative GI tract decompression. A single loop of minimally dilated small bowel in the right mid abdomen is unchanged and most compatible with focal ileus. Small amount of postoperative free air under the right diaphragm is unchanged IMPRESSION: Mild atypical ileus pattern - improved Interpreted and Authenticated by: Calvin Branch 01/04/19
[2019-01-04] MEDS ORDERED: NICOTINE 14 MG PATCH TOPICAL SCH (11:00)
--- NOTE | 2019-01-04 12:20 | General Surgery Progress Note ---
Subjective Patient reports: feels better, pain is less, tolerating liquids well, flatus, no bowel movement, afebrile Narrative: Note initiated : 01/04/19 at 12:18 pm Service Date, if different from initiated Date: [] Patient: Alannah Valdez 78 y/o M admitted on 01/01/19 for Abd pain. Chief Complaint: [patient continues to do well. He is still passing large volumes of flatus and is tolerating liquids without difficulty. He does not have any significant abdominal distention. He denies nausea. White blood count 8, hemoglobin 12, potassium 3.9, BUN 9, creatinine 0.7, phosphorus 2.3.] Objective Temp Pulse Resp BP Pulse Ox 98.2 F 56 L 18 145/76 95 01/04/19 08:00 01/04/19 08:00 01/04/19 08:00 01/04/19 08:00 01/04/19 08:00 - Additional Data Intake & Output - Last 24 hours: Intake & Output 01/02/19 01/03/19 01/04/19 01/05/19 05:59 05:59 05:59 05:59 Intake Total 4150 3720 3980 1330 Output Total 1200 3725 4000 1800 Balance 2950 -5 -20 -470 Weight 152 lb 156 lb 149 lb - General physical appearance well developed, well nourished, no distress, other (very minimal abdominal tenderness) - Eyes PERRL, normal ocular movement - ENT normal pinna, normal nares, normal mucosa, no hearing loss, no congestion - Neck no masses, no bruits, trachea midline, no lymphadenopathy, no venous distension - Respiratory normal expansion, normal respiratory effort, clear to auscultation - Cardiovascular Cardiovascular exam: Present: normal rate and rhythm, RRR, +S1, +S2. Absent: JVD, tachycardia - Abdomen non tender, bowel sounds (present), surgical scars (none), masses (none) - Rectum normal sphincter tone, no hemorrhoids, no tenderness, no masses, no bleeding - Integumentary no rash, no growths, no abnormal pigmentation - Neurologic normal coordination, normal sensation - Musculoskeletal normal gait, normal posture - Psychiatric oriented to time - Labs 01/04/19 03:53 01/04/19 03:53 Diabetes panel 01/04/19 Range/Units 03:53 Sodium 141 (133-145) mmol/L Potassium 3.9 (3.3-5.1) mmol/L Chloride 108 (96-108) mmol/L Carbon Dioxide 23 (22-30) mmol/L BUN 9 (8-23) mg/dl Creatinine 0.7 (0.7-1.2) mg/dl Glucose 86 (70-105) mg/dL Calcium 7.9 L (8.6-10.4) mg/dl AST 15 (0-37) U/l ALT 8 (0-40) U/l Alkaline Phosphatase 39 (39-117) U/L Total Protein 5.9 (5.9-8.4) gm/dL Albumin 3.3 (3.2-5.2) gm/dL Triglycerides 111 (<150) mg/dl Calcium panel 01/04/19 Range/Units 03:53 Calcium 7.9 L (8.6-10.4) mg/dl Phosphorus 2.3 L (2.7-4.5) mg/dL Albumin 3.3 (3.2-5.2) gm/dL Pituitary panel 01/04/19 Range/Units 03:53 Sodium 141 (133-145) mmol/L Potassium 3.9 (3.3-5.1) mmol/L Chloride 108 (96-108) mmol/L Carbon Dioxide 23 (22-30) mmol/L BUN 9 (8-23) mg/dl Creatinine 0.7 (0.7-1.2) mg/dl Glucose 86 (70-105) mg/dL Calcium 7.9 L (8.6-10.4) mg/dl Adrenal panel 01/04/19 Range/Units 03:53 Sodium 141 (133-145) mmol/L Potassium 3.9 (3.3-5.1) mmol/L Chloride 108 (96-108) mmol/L Carbon Dioxide 23 (22-30) mmol/L BUN 9 (8-23) mg/dl Creatinine 0.7 (0.7-1.2) mg/dl Glucose 86 (70-105) mg/dL Calcium 7.9 L (8.6-10.4) mg/dl Total Bilirubin 0.8 (0.0-1.0) mg/dL AST 15 (0-37) U/l ALT 8 (0-40) U/l Alkaline Phosphatase 39 (39-117) U/L Total Protein 5.9 (5.9-8.4) gm/dL Albumin 3.3 (3.2-5.2) gm/dL Assessment and Plan (1) Small bowel obstruction due to adhesions Status: Resolved Assessment and plan: Saline lock IV. Full liquid diet and advance to soft diet as tolerated. Milk of magnesia 30 cc every 4 hours 2 doses Current Visit: Yes (2) Hypothyroidism (acquired) Status: Acute Current Visit: Yes (3) History of kidney stones Status: Acute Current Visit: Yes - Time Spent With Patient Total time spent is greater than 50% in coordination of care (as documented) at patient's floor/unit and/or counseling patient:
[2019-01-04] MEDS: MAGNESIUM HYDROXIDE 30 ML ORAL.SUSP PO SCH ×2 (13:59→17:42)
--- NOTE | 2019-01-05 06:46 | XRay Report ---
CLINICAL INFORMATION: postoperative ileus COMPARISON: 01/04/2019 FINDINGS: Stool gas pattern is unremarkable. No soft tissue mass, organomegaly or pathologic calcification. Small amount of postoperative free air under the right diaphragm has decreased. IMPRESSION: Decreasing postoperative free air. Negative exam Interpreted and Authenticated by: Calvin Branch 01/05/19
[2019-01-05] MEDS: METOCLOPRAMIDE 10 MG/2 ML VIAL IV SCH ×2 (07:22→12:24)
[2019-01-05] MEDS: PIPERACILLIN SODIUM/TAZOBACTAM 3.375 GM in DEXTROSE 5% IN WATER 50 ML IV SCH ×2 (07:22→12:24)
[2019-01-05] MEDS: PANTOPRAZOLE 40 MG VIAL IV SCH (07:23)
[2019-01-05] MEDS ORDERED: LEVOTHYROXINE SODIUM 112 MCG TABLET PO SCH (07:30)
[2019-01-05] MEDS: NEUTRA PHOS 1 PACKET PO SCH (08:14)
--- NOTE | 2019-01-05 10:54 | Discharge Summary ---
Providers - Providers Patient information: Note initiated : 01/05/19 at 10:50 am Service Date, if different from initiated Date: [] Patient: Alannah Valdez 78 y/o M admitted on 01/01/19 for Abd pain. Chief Complaint: [] Date of admission: 01/01/19 Discharge date: 01/05/19 Attending physician: Josefa Mohan Hospitalization Hospital course: 78-year-old male who was admitted on 01 January with crampy abdominal pain and evidence of internal hernia with bowel obstruction. The patient awakened on the morning of admission with severe crampy abdominal pain. He had nausea. He was seen in the emergency room where a CT of the abdomen reveal an area of twisted bowel, with curling of the mesentery, left lateral abdomen. It was suspected that he had an internal hernia with obstruction. There was gas distally in the colon and the bowel distal to the area of obstruction was completely decompressed. The patient gave a history of prior laparotomy for kidney stone in the 1960s. After preparation, he was taken to the OR and explored. He was found to have a tight adhesive band around about 20 cm of jejunum with severe dark ischemic hemorrhagic changes of the mesentery and the bowel loops. The bowel regained perfusion with excellent peristalsis. After 15 minutes of observation. The rest of the bowel was uninvolved. He was monitored over the next 3 days. Nasogastric decompression was carried out until he started having flatus on the third. He was started on clear liquids and his diet has been advanced without difficulty. He had 3 large bowel movements yesterday. He is totally asymptomatic at this time and his pain is well controlled. He is stable for discharge. Patient will be leaving the area. 2 days, to return to [facility]. He will seek attention for removal of his roger in 2 weeks. Discharge diagnosis: small bowel obstruction due to adhesions Reason for admission: , severe abdominal pain with nausea Procedures: Exploratory laparotomy with adhesiolysis January 2019 Pertinent studies/significant findings: CT of abdomen and pelvis without contrast Complications: None Exam Temp Pulse Resp BP Pulse Ox 97.6 F 70 18 143/81 95 01/05/19 07:57 01/05/19 07:57 01/05/19 07:57 01/05/19 07:57 01/05/19 07:57 - General physical appearance well developed, well nourished, no distress - Eyes PERRL, normal ocular movement - ENT normal pinna, normal nares, normal mucosa, no hearing loss, no congestion - Head Head exam IM: Present: atraumatic, normocephalic - Neck no masses, no bruits, trachea midline, no lymphadenopathy, no venous distension - Cardiovascular Cardiovascular exam IM: Present: normal rate and rhythm - Respiratory normal expansion, normal respiratory effort, clear to percussion, clear to auscultation - Abdomen Abdomen: Present: soft, tender (mild incisional tenderness with minimal abdominal distention; good hyperactive bowel sounds), bowel sounds Hernia: Present: none - Genitourinary Present: normal penis with no external lesions - Integumentary Present: no rash, no growths, no abnormal pigmentation - Neurologic Present: normal coordination, normal sensation - Musculoskeletal Present: normal gait, normal posture - Psychiatric Present: oriented to time, oriented to person, oriented to place, speech is normal, memory intact Discharge Plan - Patient/Caregiver Discharge Instructions Activity: increase activity as tolerated, other (. No lifting over 20 pounds;Leave dressing in place until roger are removed; roger to be removed 2 weeks after the date of surgery) Diet: Regular Diet Prescriptions: oxyCODONE HCL/ACETAMINOPHEN [Endocet 10-325 mg Tablet] 1 tab PO Q4H PRN #40 tab PRN Reason: Pain - Follow up Plan Disposition: Home, Self-Care Prognosis: Good Rehab Potential: Good I certify that the patient requires SNF services.: No Overall status at discharge: patient is progressing back to baseline Pending Studies Resuscitation Status Full Code Diet GI Soft/Transitional Start ThuJan 04 2127 Hydromorphone HCl (Dilaudid) 0.5 - 1 mg IV Q2HP PRN PRN Reason: PAIN LEVEL > 6 Last Admin: 01/02/19 19:33 Dose: 1 mg Documented by: Admin: 01/02/19 04:22 Dose: 1 mg Documented by: Admin: 01/01/19 23:54 Dose: 1 mg Documented by: Admin: 01/01/19 21:49 Dose: 1 mg Documented by: SHANTA Piperacillin Sod/Tazobactam (Sod 3.375 gm/ Dextrose) 50 mls @ 100 mls/hr IV Q6H [facility]; Protocol Last Infusion: 01/05/19 07:53 Dose: 0 mls/hr Documented by: [email or web address] Admin: 01/05/19 07:22 Dose: 100 mls/hr Documented by: [email or web address] Infusion: 01/05/19 00:25 Dose: 100 mls/hr Documented by: [email or web address] Admin: 01/04/19 23:55 Dose: 100 mls/hr Documented by: [email or web address] Infusion: 01/04/19 18:12 Dose: 100 mls/hr Documented by: [email or web address] Admin: 01/04/19 17:42 Dose: 100 mls/hr Documented by: Infusion: 01/04/19 14:40 Dose: 0 mls/hr Documented by: Admin: 01/04/19 11:29 Dose: 100 mls/hr Documented by: Infusion: 01/04/19 06:46 Dose: 0 mls/hr Documented by: Admin: 01/04/19 05:53 Dose: 100 mls/hr Documented by: [email or web address] Infusion: 01/04/19 00:27 Dose: 100 mls/hr Documented by: [email or web address] Admin: 01/03/19 23:57 Dose: 100 mls/hr Documented by: [email or web address] Infusion: 01/03/19 18:00 Dose: 100 mls/hr Documented by: [email or web address] Admin: 01/03/19 17:30 Dose: 100 mls/hr Documented by: Infusion: 01/03/19 11:48 Dose: 100 mls/hr Documented by: Admin: 01/03/19 11:18 Dose: 100 mls/hr Documented by: Infusion: 01/03/19 06:59 Dose: 0 mls/hr Documented by: Admin: 01/03/19 05:03 Dose: 100 mls/hr Documented by: Infusion: 01/03/19 00:21 Dose: 100 mls/hr Documented by: Admin: 01/02/19 23:51 Dose: 100 mls/hr Documented by: Infusion: 01/02/19 18:03 Dose: 100 mls/hr Documented by: Admin: 01/02/19 17:33 Dose: 100 mls/hr Documented by: [email or web address] Infusion: 01/02/19 12:00 Dose: 0 mls/hr Documented [facility]: [facility] Admin: 01/02/19 11:29 Dose: 100 mls/hr [facility]: [facility] Infusion: 01/02/19 06:15 Dose: 0 mls/hr [facility]: [facility] Admin: 01/02/19 05:43 Dose: 100 mls/hr Documented by: Infusion: 01/02/19 01:25 Dose: 100 mls/hr Documented by: Admin: 01/02/19 00:55 Dose: 100 mls/hr Documented by: Infusion: 01/01/19 21:40 Dose: 100 mls/hr Documented by: Admin: 01/01/19 21:10 Dose: 100 mls/hr Documented by: SHANTA Levothyroxine Sodium (Synthroid) 112 mcg PO QAMAC [facility] Last Admin: 01/05/19 07:23 Dose: 112 mcg Documented by: [email or web address] Metoclopramide HCl (Reglan) 10 mg IV Q6 [facility] Last Admin: 01/05/19 07:22 Dose: 10 mg Documented by: [email or web address] Admin: 01/04/19 23:53 Dose: 10 mg Documented by: Admin: 01/04/19 17:42 Dose: 10 mg Documented by: Admin: 01/04/19 11:29 Dose: 10 mg Documented by: Admin: 01/04/19 05:52 Dose: 10 mg Documented by: [email or web address] Admin: 01/03/19 23:56 Dose: 10 mg Documented by: Admin: 01/03/19 17:30 Dose: 10 mg Documented by: Admin: 01/03/19 11:19 Dose: 10 mg Documented by: Admin: 01/03/19 05:03 Dose: 10 mg Documented by: Admin: 01/02/19 23:51 Dose: 10 mg Documented by: Admin: 01/02/19 17:30 Dose: 10 mg Documented by: Admin: 01/02/19 12:38 Dose: 10 mg Documented by: [email or web address] Admin: 01/02/19 05:43 Dose: 10 mg Documented by: Admin: 01/01/19 23:48 Dose: 10 mg Documented by: SHANTA Ondansetron HCl (Zofran) 4 mg IV Q4HP PRN PRN Reason: Nausea And Vomiting Last Admin: 01/02/19 19:33 Dose: 4 mg Documented by: Admin: 01/02/19 04:22 Dose: 4 mg Documented by: Admin: 01/01/19 21:49 Dose: 4 mg Documented by: SHANTA Pantoprazole Sodium (Protonix) 40 mg IV BIDAC [facility] Last Admin: 01/05/19 07:23 Dose: 40 mg Documented by: Admin: 01/04/19 17:42 Dose: 40 mg Documented by: Admin: 01/04/19 06:46 Dose: 40 mg Documented by: Admin: 01/03/19 17:30 Dose: 40 mg Documented by: Admin: 01/03/19 06:51 Dose: 40 mg Documented by: Admin: 01/02/19 17:25 Dose: 40 mg Documented by: [email or web address] Admin: 01/02/19 07:58 Dose: 40 mg Documented by: [email or web address] Potassium/Phosphorus/Sodium (Neutra Phos) 1 packet PO BID [facility] Last Admin: 01/05/19 08:14 Dose: 1 packet Documented by: Admin: 01/04/19 20:22 Dose: 1 packet Documented by: Admin: 01/04/19 09:08 Dose: 1 packet Documented by: Admin: 01/03/19 20:49 Dose: 1 packet Documented by: ZHAO Shift Summary 01/05/19 05:24 Shift Summary by Kelsey Aviles Slept most of the night. Up ad alicja in room, voiding per urinal. Had BM x 3 last night, first one soft, second 2 more loose. will advance diet to GI soft this am. Had had no pain. midline incision w/scant drainage. Hoping to go home today Initialized on 01/05/19 05:24 - END OF NOTE
== END 2019-01-05 13:00 | disposition home or self-care (01) | DRG 335 ==
LOC: ED 09:22 → MEDSUR 09:22 → OBSVTOIN 12:08 → MEDSUR 12:11
PROVIDERS: ADMIT Family Medicine Adult Medicine; ATTEND Family Medicine Adult Medicine